=== PATIENT | male | born 2000 | race Caucasian/White ===

== ENCOUNTER 2019-02-06 15:40 | Emergency (ER) | payer OTHER, SELFPAY ==
[2019-02-06] MEDS ORDERED: Adacel (T-DAP) 0.5 ML SYRINGE ONE (16:00)
[2019-02-06] MEDS ORDERED: HYDROcodone/Acetaminophen 5/325 mg Tablet ONE (16:00)
[2019-02-06] MEDS ORDERED: Ketorolac Tromethamine 60 MG/2 ML VIAL ONE (16:00)
--- NOTE | 2019-02-06 16:12 | RAD ---
Exam: XR Foot Rt 3 View STANDARD HISTORY: Injury to right great toe. COMPARISON: None FINDINGS: There is suggestion of mild soft tissue irregularity involving the distal aspect of the right great t oe. This would be better assessed clinically. No acute fracture, dislocation, or other acute osseous abnormality is identified. IMPRESSION: No acute osseous abnormality is identified.
[2019-02-06] MEDS ORDERED: Bacitracin 1 PK ONE (16:20)
== END 2019-02-06 16:40 | disposition home or self-care (01) ==
LOC: NAV ERS 15:40
DX: S91.201A Unspecified open wound of right great toe with damage to nail, initial encounter (principal); W22.8XXA Striking against or struck by other objects, initial encounter
CPT/HCPCS: 90471; 90715; 96372; J1885

== ENCOUNTER 2019-05-18 09:29 | Emergency (ER) | payer SELFPAY ==
[2019-05-18] MEDS ORDERED: Lidocaine 1% w/Epinephrine 1:100K 30 ML VIAL ONE (10:01)
[2019-05-18] MEDS ORDERED: Bacitracin 1 PK ONE (10:25)
== END 2019-05-18 10:43 | disposition home or self-care (01) ==
LOC: NAV ERS 09:29
DX: S66.921A Laceration of unspecified muscle, fascia and tendon at wrist and hand level, right hand, initial encounter (principal); S56.427A Laceration of extensor muscle, fascia and tendon of right little finger at forearm level, initial encounter; W26.0XXA Contact with knife, initial encounter
CPT/HCPCS: 12002; J2001

== ENCOUNTER 2022-05-02 23:37 | Emergency (ER) | payer SELFPAY ==
[2022-05-02] MEDS ORDERED: Lidocaine 1% (PF) 30 ML VIAL ONE (23:52)
[2022-05-03] MEDS ORDERED: Sulfameth/Trimethoprim DS 800-160mg TAB ONE (00:49)
[2022-05-03] MEDS ORDERED: Bacitracin 1 PK ONE (00:49)
[2022-05-03] MEDS ORDERED: Ibuprofen 800 MG TAB ONE (00:49)
== END 2022-05-03 01:02 | disposition home or self-care (01) ==
LOC: NAV ERS 23:37
DX: S61.412A Laceration without foreign body of left hand, initial encounter (principal); W26.0XXA Contact with knife, initial encounter
CPT/HCPCS: 12002; J2001